=== PATIENT | male | born 1950 | race Caucasian/White ===

== ENCOUNTER 2020-03-18 20:57 | Inpatient (IN) | payer MEDICARE, SELFPAY ==
[~2020-03-18] VITALS: Ht 188 cm; Wt 108.0 kg
[2020-03-18 20:57] VITALS: BP_SYST 115
[2020-03-18] MEDS ORDERED: PROP10TA10 PO (22:49)
[2020-03-18] MEDS ORDERED: SERT25TA PO (22:49)
[2020-03-18] MEDS ORDERED: LIP40 PO (22:49)
[2020-03-18] MEDS ORDERED: LISI-600 PO (22:49)
[2020-03-19 00:10] LABS: BASOPHILS % (AUTO) 0.2 % (0.0-2.0); EOSINOPHILS % (AUTO) 0.3 % (0.0-4.0); HEMATOCRIT 31.1 % (36-54); HEMOGLOBIN 11.4 g/dL (14.0-18.0); LYMPHOCYTES # (AUTO) 0.7 K/uL (1.0-5.5); LYMPHOCYTES % (AUTO) 7.4 % (20.5-51.5); MEAN CORPUSCULAR HEMOGLOBIN 44 pg (27-31); MEAN CORPUSCULAR HGB CONC 37 % (32-36); MONOCYTES # (AUTO) 0.6 K/uL (0.0-1.0); NEUTROPHILS # (AUTO) 8.6 K/uL (1.8-7.7); NEUTROPHILS % (AUTO) 86.1 % (40.0-70.0); PLATELET COUNT (AUTO) 175 K/uL (130-430); RED BLOOD CELL COUNT(AUTO) 2.58 MIL/uL (4.2-6.2); RED CELL DISTRIBUTION WIDTH 14.2 % (9.0-15.0)
[2020-03-19 00:42] LABS: MEAN CORPUSCULAR VOLUME 121 fL (79.0-98.0)
[2020-03-19 00:59] LABS: CALCIUM 7.3 mg/dL (8.4-11.0); CREATININE 5.96 mg/dL (0.55-1.30); POTASSIUM 2.8 mmol/L (3.5-5.1); TOTAL BILIRUBIN 0.5 mg/dL (0.0-1.0)
[2020-03-19 01:06] LABS: C-REACTIVE PROTEIN QUANT 1.2 mg/dL (0-0.5); INR 1.1 (0.80-1.20); PROTHROMBIN TIME 11.1 SECS (9.5-12.5)
[2020-03-19] MEDS ORDERED: POTASSIUM CHLORIDE IV STA (02:04)
[2020-03-19] MEDS ORDERED: NACL 0.9% IV STA (02:04)
[2020-03-19] MEDS ORDERED: MAGNESIUM SULFATE/D5W 100 ML IV ONE ×2 (02:11→02:15)
[2020-03-19] MEDS ORDERED: KCL 10 mEq in 50 mL (PREMIX) 50 ML IV ONE ×2 (03:55→04:15)
[2020-03-19] MEDS ORDERED: NOREPINEPHRINE BITARTRATE 4 MG in NS 246 ML IV ONE (04:00)
[2020-03-19] MEDS ORDERED: NOREPINEPHRINE 4 MG/4 ML VIAL IV ONE (04:49)
[2020-03-19] MEDS: D5/0.45 NS 1,000 ML IV SCH ×2 (05:25→11:51)
[2020-03-19] MEDS ORDERED: POTASSIUM CHLORIDE 20 MEQ TAB.PRT.SR PO ONE (10:15)
[2020-03-19 12:10] VITALS: BP_SYST 117
[2020-03-19] MEDS ORDERED: HYDROcodone/ACETAMIN 10-325 MG TAB PO PRN (12:45)
[2020-03-19] MEDS ORDERED: ONDANSETRON HCL 4 MG/2 ML VIAL IVP PRN (12:45)
[2020-03-19] MEDS ORDERED: HYDROcodone/ACETAMIN 5-325 MG TAB (NORCO/ VICODIN) PO PRN (12:45)
[2020-03-19] MEDS ORDERED: ACETAMINOPHEN 325 MG TABLET PO PRN (12:45)
[2020-03-19] MEDS ORDERED: NALOXONE HCL 0.4 MG/ML AMP (NARCAN) IVP PRN ×2 (12:45)
[2020-03-19] MEDS ORDERED: LORazepam 2 MG/ML VIAL IVP PRN (12:45)
[2020-03-19] MEDS ORDERED: FLU VACC QS2020-21(65UP)/PF 0.7 ML/SYRINGE I.M. PRN (14:00)
[2020-03-19 16:05] VITALS: BP_SYST 102
[2020-03-19 20:00] VITALS: BP_SYST 124
[2020-03-19] MEDS: PROPRANOLOL HCL 10 MG TABLET (INDERAL) PO SCH (21:00)
[2020-03-20] VITALS: BP_SYST 95
[2020-03-20] MEDS: D5/0.45 NS 1,000 ML IV SCH ×3 (00:04→20:30)
[2020-03-20 08:00] VITALS: BP_SYST 93
[2020-03-20 08:15] LABS: BASOPHILS # (AUTO) 0.1 K/uL (0.0-0.2); BASOPHILS % (AUTO) 0.7 % (0.0-2.0); EOSINOPHILS # (AUTO) 0.1 K/uL (0.0-0.4); EOSINOPHILS % (AUTO) 0.7 % (0.0-4.0); HEMATOCRIT 30.8 % (36-54); HEMOGLOBIN 11.3 g/dL (14.0-18.0); LYMPHOCYTES # (AUTO) 0.7 K/uL (1.0-5.5); LYMPHOCYTES % (AUTO) 8.4 % (20.5-51.5); MEAN CORPUSCULAR HEMOGLOBIN 44 pg (27-31); MEAN CORPUSCULAR HGB CONC 37 % (32-36); MONOCYTES # (AUTO) 0.5 K/uL (0.0-1.0); MONOCYTES % (AUTO) 5.4 % (1.7-9.3); NEUTROPHILS # (AUTO) 7.5 K/uL (1.8-7.7); NEUTROPHILS % (AUTO) 84.8 % (40.0-70.0); PLATELET COUNT (AUTO) 172 K/uL (130-430); RED BLOOD CELL COUNT(AUTO) 2.56 MIL/uL (4.2-6.2); RED CELL DISTRIBUTION WIDTH 14.2 % (9.0-15.0); WHITE BLOOD COUNT (AUTO) 8.9 K/uL (4.8-10.8)
[2020-03-20 08:30] LABS: ALBUMIN 3.2 g/dL (3.4-4.8); CALCIUM 8.5 mg/dL (8.4-11.0); CREATININE 2.84 mg/dL (0.55-1.30); PHOSPHORUS 3.8 mg/dL (2.7-4.5); TOTAL BILIRUBIN 0.5 mg/dL (0.0-1.0)
[2020-03-20] MEDS: ATORVASTATIN 20 MG TABLET PO SCH (09:00)
[2020-03-20 09:09] LABS: POTASSIUM 2.8 mmol/L (3.5-5.1)
[2020-03-20] MEDS ORDERED: VITD2000 PO (10:14)
[2020-03-20 11:02] LABS: MEAN CORPUSCULAR VOLUME 120 fL (79.0-98.0)
[2020-03-20] MEDS: SERTRALINE HCL 50 MG TABLET PO SCH (11:09)
[2020-03-20] MEDS: PROPRANOLOL HCL 10 MG TABLET (INDERAL) PO SCH ×2 (11:09→20:30)
[2020-03-20] MEDS ORDERED: POTASSIUM CHLORIDE 60 MEQ, LIDOCAINE JECT 2% PF 100 MG 75 MG in NS 500 ML IV ONE (16:00)
[2020-03-20 20:00] VITALS: BP_SYST 94
[2020-03-21] VITALS: BP_SYST 120
[2020-03-21] MEDS: D5/0.45 NS 1,000 ML IV SCH ×2 (06:30→16:23)
[2020-03-21 07:39] LABS: BASOPHILS % (AUTO) 0.4 % (0.0-2.0); EOSINOPHILS % (AUTO) 0.4 % (0.0-4.0); HEMATOCRIT 34.1 % (36-54); HEMOGLOBIN 12.3 g/dL (14.0-18.0); LYMPHOCYTES # (AUTO) 0.7 K/uL (1.0-5.5); LYMPHOCYTES % (AUTO) 7.3 % (20.5-51.5); MEAN CORPUSCULAR HEMOGLOBIN 43 pg (27-31); MEAN CORPUSCULAR HGB CONC 36 % (32-36); MEAN CORPUSCULAR VOLUME 120 fL (79.0-98.0); MONOCYTES # (AUTO) 0.6 K/uL (0.0-1.0); MONOCYTES % (AUTO) 6.4 % (1.7-9.3); NEUTROPHILS # (AUTO) 7.7 K/uL (1.8-7.7); NEUTROPHILS % (AUTO) 85.5 % (40.0-70.0); PLATELET COUNT (AUTO) 180 K/uL (130-430); RED BLOOD CELL COUNT(AUTO) 2.84 MIL/uL (4.2-6.2); RED CELL DISTRIBUTION WIDTH 14.4 % (9.0-15.0)
[2020-03-21 08:00] VITALS: BP_SYST 105
[2020-03-21] MEDS: ATORVASTATIN 20 MG TABLET PO SCH (09:00)
[2020-03-21] MEDS: SERTRALINE HCL 50 MG TABLET PO SCH (09:00)
[2020-03-21] MEDS: PROPRANOLOL HCL 10 MG TABLET (INDERAL) PO SCH ×2 (09:00→22:29)
[2020-03-21 10:00] LABS: CALCIUM 9.2 mg/dL (8.4-11.0); CREATININE 1.77 mg/dL (0.55-1.30); PHOSPHORUS 3.2 mg/dL (2.7-4.5); POTASSIUM 3.1 mmol/L (3.5-5.1)
[2020-03-21 11:40] VITALS: BP_SYST 127
[2020-03-21] MEDS ORDERED: MAGNESIUM SULFATE 50 ML IV ONE (14:45)
[2020-03-21] MEDS ORDERED: KCL 40 mEq in 100 mL (PREMIX) 100 ML IV ONE (14:45)
[2020-03-21 15:36] VITALS: BP_SYST 120
[2020-03-21 20:00] VITALS: BP_SYST 138
[2020-03-21] MEDS: KCL 20 mEq in 100 mL (PREMIX) 100 ML IV SCH (22:00)
[2020-03-22] VITALS: BP_SYST 106
[2020-03-22] MEDS: KCL 20 mEq in 100 mL (PREMIX) 100 ML IV SCH (01:45)
[2020-03-22] MEDS: D5/0.45 NS 1,000 ML IV SCH ×3 (04:30→22:30)
[2020-03-22 08:00] VITALS: BP_SYST 109
[2020-03-22] MEDS: PROPRANOLOL HCL 10 MG TABLET (INDERAL) PO SCH ×2 (09:00→21:00)
[2020-03-22 09:17] LABS: BASOPHILS # (AUTO) 0.1 K/uL (0.0-0.2); BASOPHILS % (AUTO) 0.7 % (0.0-2.0); EOSINOPHILS # (AUTO) 0.1 K/uL (0.0-0.4); EOSINOPHILS % (AUTO) 0.6 % (0.0-4.0); HEMOGLOBIN 13.1 g/dL (14.0-18.0); LYMPHOCYTES # (AUTO) 0.9 K/uL (1.0-5.5); LYMPHOCYTES % (AUTO) 8.3 % (20.5-51.5); MEAN CORPUSCULAR HEMOGLOBIN 49 pg (27-31); MEAN CORPUSCULAR HGB CONC 40 % (32-36); MEAN CORPUSCULAR VOLUME 123 fL (79.0-98.0); MONOCYTES # (AUTO) 0.6 K/uL (0.0-1.0); MONOCYTES % (AUTO) 5.6 % (1.7-9.3); NEUTROPHILS # (AUTO) 9.3 K/uL (1.8-7.7); NEUTROPHILS % (AUTO) 84.8 % (40.0-70.0); PLATELET COUNT (AUTO) 322 K/uL (130-430); RED CELL DISTRIBUTION WIDTH 14.7 % (9.0-15.0)
[2020-03-22] MEDS: SERTRALINE HCL 50 MG TABLET PO SCH (09:47)
[2020-03-22] MEDS: ATORVASTATIN 20 MG TABLET PO SCH (09:47)
[2020-03-22 09:56] LABS: CALCIUM 9.1 mg/dL (8.4-11.0); CREATININE 1.34 mg/dL (0.55-1.30); PHOSPHORUS 2.3 mg/dL (2.7-4.5); POTASSIUM 3.4 mmol/L (3.5-5.1)
[2020-03-22 11:29] VITALS: BP_SYST 115
[2020-03-22 15:28] VITALS: BP_SYST 96
[2020-03-22 20:00] VITALS: BP_SYST 126
[2020-03-23] VITALS: BP_SYST 100
[2020-03-23 07:19] LABS: BASOPHILS % (AUTO) 0.3 % (0.0-2.0); EOSINOPHILS % (AUTO) 0.4 % (0.0-4.0); HEMATOCRIT 33.5 % (36-54); HEMOGLOBIN 12.1 g/dL (14.0-18.0); LYMPHOCYTES # (AUTO) 0.7 K/uL (1.0-5.5); LYMPHOCYTES % (AUTO) 7.9 % (20.5-51.5); MEAN CORPUSCULAR HEMOGLOBIN 44 pg (27-31); MEAN CORPUSCULAR HGB CONC 36 % (32-36); MEAN CORPUSCULAR VOLUME 120 fL (79.0-98.0); MONOCYTES # (AUTO) 0.6 K/uL (0.0-1.0); MONOCYTES % (AUTO) 6.7 % (1.7-9.3); NEUTROPHILS # (AUTO) 7.8 K/uL (1.8-7.7); NEUTROPHILS % (AUTO) 84.7 % (40.0-70.0); PLATELET COUNT (AUTO) 179 K/uL (130-430); RED BLOOD CELL COUNT(AUTO) 2.78 MIL/uL (4.2-6.2); RED CELL DISTRIBUTION WIDTH 14.2 % (9.0-15.0); WHITE BLOOD COUNT (AUTO) 9.2 K/uL (4.8-10.8)
[2020-03-23 07:58] LABS: ALBUMIN 3.2 g/dL (3.4-4.8); CALCIUM 9.2 mg/dL (8.4-11.0); CREATININE 1.16 mg/dL (0.55-1.30); PHOSPHORUS 2.3 mg/dL (2.7-4.5); POTASSIUM 3.2 mmol/L (3.5-5.1); TOTAL BILIRUBIN 0.6 mg/dL (0.0-1.0)
[2020-03-23 08:30] VITALS: BP_SYST 94
[2020-03-23] MEDS: PROPRANOLOL HCL 10 MG TABLET (INDERAL) PO SCH ×2 (09:00→21:23)
[2020-03-23] MEDS: D5/0.45 NS 1,000 ML IV SCH ×2 (09:03→18:33)
[2020-03-23] MEDS: ATORVASTATIN 20 MG TABLET PO SCH (09:03)
[2020-03-23] MEDS: SERTRALINE HCL 50 MG TABLET PO SCH (09:03)
[2020-03-23 11:39] LABS: C-REACTIVE PROTEIN QUANT 3.1 mg/dL (0-0.5)
[2020-03-23 12:01] VITALS: BP_SYST 127
[2020-03-23 12:22] LABS: ERYTHROCYTE SEDIMENTATION RATE 80 MM/HR (0-15)
[2020-03-23 16:20] VITALS: BP_SYST 138
[2020-03-23] MEDS ORDERED: POTASSIUM CHLORIDE 20 MEQ TAB.PRT.SR PO ONE (17:45)
[2020-03-23] MEDS ORDERED: POTASSIUM CHLORIDE 20 MEQ TAB.PRT.SR ONE (17:52)
[2020-03-23 20:30] VITALS: BP_SYST 115
[2020-03-24 00:21] VITALS: BP_SYST 138
[2020-03-24] MEDS: D5/0.45 NS 1,000 ML IV SCH ×2 (05:30→14:59)
[2020-03-24 07:39] LABS: CALCIUM 8.8 mg/dL (8.4-11.0); CREATININE 1.15 mg/dL (0.55-1.30); PHOSPHORUS 1.5 mg/dL (2.7-4.5); POTASSIUM 3.4 mmol/L (3.5-5.1)
[2020-03-24 08:00] VITALS: BP_SYST 114
[2020-03-24] MEDS: SERTRALINE HCL 50 MG TABLET PO SCH (08:15)
[2020-03-24] MEDS: ATORVASTATIN 20 MG TABLET PO SCH (08:15)
[2020-03-24] MEDS: PROPRANOLOL HCL 10 MG TABLET (INDERAL) PO SCH ×2 (08:15→21:00)
[2020-03-24 09:28] LABS: BASOPHILS # (AUTO) 0.1 K/uL (0.0-0.2); BASOPHILS % (AUTO) 0.6 % (0.0-2.0); EOSINOPHILS % (AUTO) 0.3 % (0.0-4.0); HEMATOCRIT 33.2 % (36-54); HEMOGLOBIN 11.9 g/dL (14.0-18.0); LYMPHOCYTES # (AUTO) 0.5 K/uL (1.0-5.5); LYMPHOCYTES % (AUTO) 5.7 % (20.5-51.5); MEAN CORPUSCULAR HEMOGLOBIN 43 pg (27-31); MEAN CORPUSCULAR HGB CONC 36 % (32-36); MEAN CORPUSCULAR VOLUME 122 fL (79.0-98.0); MONOCYTES # (AUTO) 0.5 K/uL (0.0-1.0); MONOCYTES % (AUTO) 5.7 % (1.7-9.3); NEUTROPHILS # (AUTO) 8.2 K/uL (1.8-7.7); NEUTROPHILS % (AUTO) 87.7 % (40.0-70.0); PLATELET COUNT (AUTO) 173 K/uL (130-430); RED BLOOD CELL COUNT(AUTO) 2.73 MIL/uL (4.2-6.2); RED CELL DISTRIBUTION WIDTH 14.5 % (9.0-15.0); WHITE BLOOD COUNT (AUTO) 9.4 K/uL (4.8-10.8)
[2020-03-24] MEDS ORDERED: K PHOS 30 MM in NS 250 ML IV ONE (11:30)
[2020-03-24] MEDS ORDERED: MAGNESIUM SULFATE 50 ML IV ONE (11:30)
[2020-03-24 12:00] VITALS: BP_SYST 111
[2020-03-24 16:00] VITALS: BP_SYST 111
[2020-03-24 20:00] VITALS: BP_SYST 118
[2020-03-25] MEDS: D5/0.45 NS 1,000 ML IV SCH ×3 (00:30→21:53)
[2020-03-25 00:35] VITALS: BP_SYST 115
[2020-03-25 08:00] VITALS: BP_SYST 104
[2020-03-25] MEDS: PROPRANOLOL HCL 10 MG TABLET (INDERAL) PO SCH ×2 (09:00→21:52)
[2020-03-25] MEDS: SERTRALINE HCL 50 MG TABLET PO SCH (09:46)
[2020-03-25] MEDS: ATORVASTATIN 20 MG TABLET PO SCH (09:46)
[2020-03-25 12:00] VITALS: BP_SYST 108
[2020-03-25 16:00] VITALS: BP_SYST 116
[2020-03-25 20:20] VITALS: BP_SYST 124
[2020-03-26 07:21] LABS: CALCIUM 8.5 mg/dL (8.4-11.0); CREATININE 1.17 mg/dL (0.55-1.30); PHOSPHORUS 1.9 mg/dL (2.7-4.5)
[2020-03-26 07:55] VITALS: BP_SYST 97
[2020-03-26] MEDS ORDERED: MAGNESIUM SULFATE 50 ML IV ONE (08:00)
[2020-03-26] MEDS ORDERED: K PHOS 30 MM in NS 250 ML IV ONE (08:00)
[2020-03-26 09:00] LABS: BASOPHILS % (AUTO) 0.5 % (0.0-2.0); EOSINOPHILS % (AUTO) 0.7 % (0.0-4.0); HEMATOCRIT 28.8 % (36-54); HEMOGLOBIN 10.3 g/dL (14.0-18.0); LYMPHOCYTES # (AUTO) 0.9 K/uL (1.0-5.5); LYMPHOCYTES % (AUTO) 12.7 % (20.5-51.5); MEAN CORPUSCULAR HEMOGLOBIN 43 pg (27-31); MEAN CORPUSCULAR HGB CONC 36 % (32-36); MEAN CORPUSCULAR VOLUME 121 fL (79.0-98.0); MONOCYTES # (AUTO) 0.5 K/uL (0.0-1.0); MONOCYTES % (AUTO) 6.6 % (1.7-9.3); NEUTROPHILS # (AUTO) 5.5 K/uL (1.8-7.7); NEUTROPHILS % (AUTO) 79.5 % (40.0-70.0); PLATELET COUNT (AUTO) 137 K/uL (130-430); RED BLOOD CELL COUNT(AUTO) 2.38 MIL/uL (4.2-6.2); RED CELL DISTRIBUTION WIDTH 14.3 % (9.0-15.0); WHITE BLOOD COUNT (AUTO) 6.9 K/uL (4.8-10.8)
[2020-03-26] MEDS: PROPRANOLOL HCL 10 MG TABLET (INDERAL) PO SCH (09:00)
[2020-03-26] MEDS: SERTRALINE HCL 50 MG TABLET PO SCH (09:04)
[2020-03-26] MEDS: ATORVASTATIN 20 MG TABLET PO SCH (09:04)
[2020-03-26 12:49] VITALS: BP_SYST 100
[2020-03-26 14:36] LABS: FOLATE (FOLIC ACID) <2.0 ng/mL (>3.0)
[2020-03-26 16:26] VITALS: BP_SYST 116
[2020-03-26 18:06] VITALS: BP_SYST 116
== END 2020-03-26 18:50 | disposition home health service (06) | DRG 682 ==
LOC: SED 20:57 → SIC 03-19 04:27 → STU 03-19 11:55 → SMU 03-26 10:10
PROVIDERS: ADMIT Preventive Medicine Preventive Medicine/Occupational Environmental Medicine; ATTEND Preventive Medicine Preventive Medicine/Occupational Environmental Medicine
DX: N17.9 Acute kidney failure, unspecified (principal); E43 Unspecified severe protein-calorie malnutrition; E87.6 Hypokalemia; E83.42 Hypomagnesemia; E83.52 Hypercalcemia; R73.9 Hyperglycemia, unspecified; D72.829 Elevated white blood cell count, unspecified; R53.1 Weakness; Z20.822 Contact with and (suspected) exposure to COVID-19; E86.0 Dehydration; I95.9 Hypotension, unspecified; F17.210 Nicotine dependence, cigarettes, uncomplicated; G31.84 Mild cognitive impairment of uncertain or unknown etiology; I10 Essential (primary) hypertension; E86.1 Hypovolemia; R94.31 Abnormal electrocardiogram [ECG] [EKG]; D64.9 Anemia, unspecified; E83.39 Other disorders of phosphorus metabolism; Z68.30 Body mass index [BMI] 30.0-30.9, adult; Z90.49 Acquired absence of other specified parts of digestive tract
CPT/HCPCS: 36415; 71045; 76770; 80048; 80053; 82550-TC; 82607; 82728; 82746; 83605; 83615-TC; 83735-TC; 83880; 84100-TC; 84484; 85025; 85379; 85384-TC; 85610-TC; 85651-TC; 85730-TC; 86140; 87040-TC; 87230-TC; 93005; 96365; 97110-GP; 97112-GP; 97116-GP; 97530-GP; 99291; G0378; J3475; J3480; J7030; J7040; J7050; U0003

== ENCOUNTER 2020-03-27 17:20 | Emergency (ER) | payer MEDICARE, SELFPAY ==
[~2020-03-27] VITALS: Ht 185.4 cm; Wt 81.6 kg
[~2020-03-27 17:20] MED LIST: LIP40 PO; LISI-600 PO; PROP10TA10 PO; SERT25TA PO; VITD2000 PO
[2020-03-27 17:35] VITALS: BP_SYST 106
--- NOTE | 2020-03-27 17:35 | NUR ---
PT TO BED 4 FOR EVALUATION, GOWNED AND ATTACHED TO MONITOR.
--- NOTE | 2020-03-27 17:50 | NUR ---
PLACED IN ROOM, 4. IN GURNEY AND ON MONITOR, NO COMPLAINTS, RESP UNLABORED C/O BILATERAL FLANK PAIN . STATED HE HAS RENAL INSUFFICIENCY. DENIES INJURY
--- NOTE | 2020-03-27 18:02 | NUR ---
DR LUIS IN TO ASSESS
--- NOTE | 2020-03-27 18:59 | NUR ---
CALM, ALERT, RESP UNLABORED, SKIN WARM AND DRY. DENIES CP/SOB. SR ON MONITOR NO ECTOPY
--- NOTE | 2020-03-27 19:03 | NUR ---
REPOSITIONED FOR COMFORT
[2020-03-27 19:36] LABS: CALCIUM 8.6 mg/dL (8.4-11.0); CREATININE 1.1 mg/dL (0.55-1.30); POTASSIUM 3.1 mmol/L (3.5-5.1)
[2020-03-27 19:38] LABS: BASOPHILS % (AUTO) 0.3 % (0.0-2.0); EOSINOPHILS % (AUTO) 0.5 % (0.0-4.0); HEMATOCRIT 29.5 % (36-54); HEMOGLOBIN 10.6 g/dL (14.0-18.0); LYMPHOCYTES # (AUTO) 0.6 K/uL (1.0-5.5); LYMPHOCYTES % (AUTO) 7.5 % (20.5-51.5); MEAN CORPUSCULAR HEMOGLOBIN 43 pg (27-31); MEAN CORPUSCULAR HGB CONC 36 % (32-36); MEAN CORPUSCULAR VOLUME 119 fL (79.0-98.0); MONOCYTES # (AUTO) 0.4 K/uL (0.0-1.0); MONOCYTES % (AUTO) 4.9 % (1.7-9.3); NEUTROPHILS # (AUTO) 6.7 K/uL (1.8-7.7); NEUTROPHILS % (AUTO) 86.8 % (40.0-70.0); PLATELET COUNT (AUTO) 136 K/uL (130-430); RED BLOOD CELL COUNT(AUTO) 2.47 MIL/uL (4.2-6.2); RED CELL DISTRIBUTION WIDTH 14.3 % (9.0-15.0); WHITE BLOOD COUNT (AUTO) 7.7 K/uL (4.8-10.8)
[2020-03-27 19:41] LABS: ALBUMIN 2.8 g/dL (3.4-4.8); TOTAL BILIRUBIN 0.9 mg/dL (0.0-1.0)
--- NOTE | 2020-03-27 20:10 | NUR ---
DR GUTIERREZ IN TO ASSESS
[2020-03-27 20:17] LABS: BILIRUBIN,URINE NEGATIVE (NEGATIVE); BLOOD, URINE NEGATIVE (NEGATIVE); CLARITY/URINE CLEAR (CLEAR); COLOR,URINE YELLOW (YELLOW); GLUCOSE,URINE NEGATIVE (NEGATIVE); KETONES,URINE NEGATIVE (NEGATIVE); LEUKOCYTE ESTERASE ,URINE NEGATIVE (NEGATIVE); NITRITE, URINE NEGATIVE (NEGATIVE); PROTEIN URINE NEGATIVE (NEGATIVE); UROBILINOGEN,URINE 0.2 (0.2-1.0)
[2020-03-27] MEDS ORDERED: HYDROcodone/ACETAMIN 5-325 MG TAB (NORCO/ VICODIN) PO ONE (20:30)
[2020-03-27] MEDS ORDERED: POTASSIUM CHLORIDE 20 MEQ TAB.PRT.SR PO ONE (20:30)
[2020-03-27 20:44] VITALS: BP_SYST 131
--- NOTE | 2020-03-27 20:47 | NUR ---
Patient given written and verbal discharge instructions and verbalizes understanding. ER MD discussed with patient the results and treatment provided. Patient in stable condition. ID arm band removed.IV HL DC'ED Rx of given. Patient educated on pain management and to follow up with PMD. Pain Scale 2/10 Opportunity for questions provided and answered. Medication side effect fact sheet provided.
--- NOTE | 2020-03-27 21:32 | NUR ---
OFF UNIT STEADY VIA WC WITH FAMILY.
== END 2020-03-27 21:32 | disposition home or self-care (01) ==
LOC: SED 17:20
DX: R10.84 Generalized abdominal pain (principal)
CPT/HCPCS: 36415; 76376; 80053; 81003; 83690-TC; 85025; 93005; 99285